=== PATIENT | male | born 1975 | race Two or more races ===

== ENCOUNTER 2019-08-04 01:00 | Emergency (ER) | payer MEDICAID ==
[~2019-08-04] VITALS: Ht 177.8 cm; Wt 65.8 kg
--- NOTE | 2019-08-04 01:15 | NUR ---
LINDA. TO ER BED 12. AAOX4. NO RESP DISTRESS NOTED. AMBULATORY. CAME IN FOR SUICIDAL IDEATION. PER PT HE HAS BEEN FEELING DEPRESSED AND WANT TO END HIS LIFE. PT PLANS TO SHOOT HIS HEAD OFF W/ A GUN BUT NO ACCESS TO GUN. PT DENIES HI. DENIES VISUAL AND AUDITORY HALLUCINATIONS. PT IS STRIPPED OFF CLTHING AND BELONGINGS KEPT IN THE LOCKER LOCATED IN UTILITY ROOM. PT IS PLACED ON GOWN W/ 1:1 SITTER AT BESIDE. AWAITING MD FOR EVAL.
[2019-08-04 01:46] LABS: BASOPHILS % (AUTO) 0.5 % (0.0-2.0); EOSINOPHILS % (AUTO) 1.3 % (0.0-6.0); HEMATOCRIT 40 % (39-51); HEMOGLOBIN 13.1 g/dL (13.5-17.5); LYMPHOCYTES # (AUTO) 1.9 /CMM (0.8-4.8); LYMPHOCYTES % (AUTO) 23.4 % (20.0-44.0); MEAN CORPUSCULAR HGB CONC 33 g/dl (31.0-36.0); MEAN CORPUSCULAR VOLUME 88 fL (80-96); MONOCYTES # (AUTO) 1.2 /CMM (0.1-1.30); MONOCYTES % (AUTO) 14.6 % (2.0-12.0); NEUTROPHILS % (AUTO) 60.2 % (43.0-81.0); PLATELET COUNT (AUTO) 175 /CMM (150-450); RED BLOOD CELL COUNT(AUTO) 4.57 MIL/uL (4.5-6.0); WHITE BLOOD COUNT (AUTO) 8.3 K/uL (4.3-11.0)
[2019-08-04 01:47] LABS: APPEARANCE,URINE Clear (CLEAR); BILIRUBIN,URINE SMALL (NEGATIVE); BLOOD, URINE Negative Ery/uL (NEGATIVE); COLOR,URINE Dark (YELLOW); KETONES,URINE 15 (NEGATIVE); LEUKOCYTE ESTERASE ,URINE Negative (NEGATIVE); NITRITE, URINE Negative (NEGATIVE); PROTEIN,URINE 30 mg/dl (NEGATIVE); UGLUCOSE Negative (NEGATIVE)
[2019-08-04 01:55] LABS: CALCIUM, SERUM 9.1 mg/dL (8.5-10.1); CARBON DIOXIDE 32 mmol/L (21-32); CHLORIDE 100 mmol/L (98-107); GLUCOSE 81 mg/dL (74-106); POTASSIUM 4.5 mmol/L (3.5-5.1); SODIUM SERUM 138 mmol/L (136-145); UREA NITROGEN, BLOOD 17 mg/dL (7-18)
[2019-08-04 02:01] LABS: ALANINE AMINOTRANSFERASE 1301 U/L (12-78); ALBUMIN 3.1 g/dL (3.4-5.0); ALCOHOL, BLOOD < 3 mg/dL (0-0); ALKALINE PHOSPHATASE 86 U/L (46-116); ASPARTATE AMINOTRANSFERASE 1068 U/L (15-37); BILIRUBIN,DIRECT 0.4 mg/dL (0.0-0.2); BILIRUBIN,TOTAL 0.9 mg/dL (0.2-1.0); TOTAL PROTEIN, SERUM 6.9 g/dL (6.4-8.2)
[2019-08-04 02:05] LABS: ACETAMINOPHEN 0 ug/ml (10-30); SALICYLATE 0.2 mg/dL (2.8-20.0)
[2019-08-04 02:06] LABS: BACTERIA,URINE None seen /HPF (None Seen); RBC,URINE 0-2 /HPF (0-2); SQUAMOUS EPITHELIAL CELL,UR Moderate /HPF (None Seen); WBC,URINE 0-2 /HPF (0-3)
--- NOTE | 2019-08-04 05:03 | NUR ---
Pt accepted to [facility] by Dr Ellis. # for report [phone]
--- NOTE | 2019-08-04 05:06 | NUR ---
[facility] called for transport. ETA [id number]. Trip#[id number]
--- NOTE | 2019-08-04 06:44 | NUR ---
PT IN BED SLEEPING COMFORTABLE W/ NO DISTRESS NOTED. PT IS EASILY ARROUSABLE.
--- NOTE | 2019-08-04 07:30 | NUR ---
PT ASLEEP ON BED EASILY AROUSABLE, AAOX3,NOT IN RESPIRATORY DISTRESS, V/S STABLE, KEPT RESTED AND COMFORTABLE, WILL CONTINUE TO MONITOR.
--- NOTE | 2019-08-04 07:57 | NUR ---
FOOD TRAY PROVIDED.
--- NOTE | 2019-08-04 09:55 | NUR ---
REPORT GIVEN TO JAMESON BARRON OF [facility].
--- NOTE | 2019-08-04 10:04 | NUR ---
REPORT GIVEN TO EMT FOR PT TRANSFER TO [facility].
[2019-08-04 10:08] VITALS: BP 125/65
== END 2019-08-04 10:09 ==
LOC: ER 01:05
DX: F29 Unspecified psychosis not due to a substance or known physiological condition (principal); F15.10 Other stimulant abuse, uncomplicated; R74.0 Nonspecific elevation of levels of transaminase and lactic acid dehydrogenase [LDH]; F31.9 Bipolar disorder, unspecified; F12.10 Cannabis abuse, uncomplicated; R45.1 Restlessness and agitation; Z59.0 Homelessness
CPT/HCPCS: 36415; 80048; 80076; 80305; 80307; 80329; 81001; 83690; 85025; 99285; G0480; 81000-TC